=== PATIENT | female | born 1990 | race Caucasian/White ===

== ENCOUNTER 2018-12-12 16:37 | Outpatient (CLI) | payer MEDICAID | END 2018-12-12 18:11 | disposition home or self-care (01) | LOC: LC 16:37 | PROVIDERS: ATTEND Obstetrics & Gynecology | DX: Z34.93 Encounter for supervision of normal pregnancy, unspecified, third trimester (principal) ==

== ENCOUNTER 2018-12-21 16:49 | Outpatient (CLI) | payer MEDICAID ==
[2018-12-21] MEDS ORDERED: BUTALB/ACETAMINOPHEN/CAFFEINE 1 TAB EACH ONE (17:13)
[2018-12-21] MEDS ORDERED: BUTALB/ACETAMINOPHEN/CAFFEINE 1 TAB EACH PO ONE (17:45)
== END 2018-12-21 17:42 | disposition home or self-care (01) ==
LOC: LC 16:49
PROVIDERS: ATTEND Obstetrics & Gynecology
PROC: 4A1HXCZ Monitoring of Products of Conception, Cardiac Rate, External Approach (ICD-10-PCS; principal; 2018-12-21)
DX: Z34.83 Encounter for supervision of other normal pregnancy, third trimester (principal)
CPT/HCPCS: 59025; J3490

== ENCOUNTER → 2018-12-24 | Outpatient (CLI) | payer MEDICAID ==
[2018-12-24 18:04] LABS: ALBUMIN 3.4 g/dL (3.5-5.0); ALKALINE PHOSPHATASE 120 U/L (38-126); ASPARTATE AMINO TRANSFERASE 25 U/L (14-36); BILIRUBIN,DIRECT 0.1 mg/dL (0.0-0.4); BILIRUBIN,TOTAL 0.3 mg/dL (0.2-1.3); TOTAL PROTEIN 5.9 g/dL (6.3-8.2)
== END ==
LOC: OD 16:32
PROVIDERS: ATTEND Obstetrics & Gynecology Gynecology
DX: Z34.83 Encounter for supervision of other normal pregnancy, third trimester (principal)
CPT/HCPCS: 36415; 80076; 82239

== ENCOUNTER 2019-01-07 16:23 | Inpatient (IN) | payer MEDICAID ==
[2019-01-07 16:59] LABS: HEMATOCRIT 36.7 % (36.0-47.0); HEMOGLOBIN 12.5 g/dL (12.0-15.5); MEAN CORPUSCULAR HEMOGLOBIN 31.8 pg (27.0-33.4); MEAN CORPUSCULAR HGB CONC 34.1 g/dL (32.0-36.0); MEAN CORPUSCULAR VOLUME 93 fl (80-97); PLATELET COUNT 200 10^3/uL (150-450); RED BLOOD COUNT 3.93 10^6/uL (3.72-5.28); RED CELL DISTRIBUTION WIDTH 14.9 % (11.5-14.0); WHITE BLOOD COUNT 11.5 10^3/uL (4.0-10.5)
[2019-01-07] MEDS ORDERED: ACETAMINOPHEN 325 MG TABLET PO ONE (17:07)
[2019-01-07] MEDS ORDERED: ACETAMINOPHEN 325 MG TABLET ONE (17:11)
[2019-01-07 17:31] LABS: ALBUMIN 3.4 g/dL (3.5-5.0); ALKALINE PHOSPHATASE 119 U/L (38-126); ANION GAP 9 (5-19); ASPARTATE AMINO TRANSFERASE 37 U/L (14-36); BILIRUBIN,DIRECT 0.2 mg/dL (0.0-0.4); BILIRUBIN,TOTAL 0.3 mg/dL (0.2-1.3); BLOOD UREA NITROGEN 4 mg/dL (7-20); CALCIUM 9.7 mg/dL (8.4-10.2); CARBON DIOXIDE 28 mmol/L (22-30); CHLORIDE 100 mmol/L (98-107); GLUCOSE 91 mg/dL (75-110)
[2019-01-07 17:39] LABS: POTASSIUM 2.7 mmol/L (3.6-5.0)
[2019-01-07 17:39] LABS: APPEARANCE,URINE CLEAR; BILIRUBIN,URINE NEGATIVE (NEGATIVE); COLOR,URINE STRAW; GLUCOSE, URINE NEGATIVE (NEGATIVE); KETONES,URINE NEGATIVE (NEGATIVE); LEUKOCYTE ESTERASE,URINE NEGATIVE (NEGATIVE); NITRITE,URINE NEGATIVE (NEGATIVE); PROTEIN,URINE NEGATIVE (NEGATIVE); URINE SPECIFIC GRAVITY 1.003; UROBILINOGEN,URINE NEGATIVE mg/dL (<2.0)
[2019-01-07 18:03] LABS: URINE AMPHETAMINES SCREEN NEGATIVE; URINE BARBITURATES SCREEN NEGATIVE; URINE BENZODIAZEPINES SCREEN NEGATIVE; URINE COCAINE SCREEN NEGATIVE; URINE MARIJUANA (THC) SCREEN NEGATIVE; URINE METHADONE SCREEN NEGATIVE; URINE PHENCYCLIDINE SCREEN NEGATIVE
[2019-01-07 18:16] LABS: UR PRO/CREAT RATIO RESULT 1.1 mg/mg (0.0-0.2); URINE CREATININE 17.9 mg/dL (16-327); URINE PROTEIN 18.8 mg/dL (<12)
[2019-01-07] MEDS ORDERED: RINGERS SOLUTION,LACTATED 1,000 ML IV PRN (18:53)
[2019-01-07] MEDS ORDERED: RINGERS SOLUTION,LACTATED 1,000 ML IV ONE (18:53)
[2019-01-07] MEDS ORDERED: DINOPROSTONE 10 MG VAGINAL INSERT.SR PV PRN (18:53)
[2019-01-07] MEDS ORDERED: NALBUPHINE HCL INJ 10 MG/1 ML AMPULE INJ ONE (18:57)
[2019-01-07] MEDS ORDERED: ZOLPIDEM TARTRATE 5 MG TABLET ONE (22:05)
[2019-01-07] MEDS ORDERED: NALBUPHINE HCL INJ 10 MG/1 ML AMPULE ONE (22:09)
[2019-01-07] MEDS ORDERED: PROMETHAZINE HCL INJ 25 MG/1 ML VIAL ONE (22:43)
[2019-01-08] MEDS ORDERED: HYDRALAZINE HCL INJ/PF 20 MG/1 ML SDV ONE (08:28)
[2019-01-08] MEDS ORDERED: OXYTOCIN/NORMAL SALINE 20 UNIT/1,000 ML RTUINJ IV PRN ×2 (08:29→18:10)
[2019-01-08] MEDS ORDERED: OXYTOCIN/NORMAL SALINE 20 UNIT/1,000 ML RTUINJ ONE (08:48)
[2019-01-08] MEDS ORDERED: MISOPROSTOL 0.2 MG TABLET ONE (08:48)
[2019-01-08] MEDS ORDERED: LIDOCAINE 1% INJ-PF (10 MG/ML) 30 ML SDV ONE (08:48)
[2019-01-08] MEDS ORDERED: OXYTOCIN 10 UNIT/ML VIAL ONE (08:48)
[2019-01-08] MEDS ORDERED: HYDRALAZINE HCL INJ/PF 20 MG/1 ML SDV IV ONE (09:30)
[2019-01-08] MEDS ORDERED: POTASSIUM CHLORIDE 10 MEQ CAPSULE.ER PO ONE (09:30)
[2019-01-08] MEDS ORDERED: ACETAMINOPHEN 1,000 MG/100 ML RTUPB IV ONE ×2 (09:37→09:39)
[2019-01-08 09:58] LABS: HEMATOCRIT 36.4 % (36.0-47.0); HEMOGLOBIN 12.7 g/dL (12.0-15.5); MEAN CORPUSCULAR HEMOGLOBIN 32.1 pg (27.0-33.4); MEAN CORPUSCULAR HGB CONC 34.9 g/dL (32.0-36.0); MEAN CORPUSCULAR VOLUME 92 fl (80-97); PLATELET COUNT 202 10^3/uL (150-450); RED BLOOD COUNT 3.96 10^6/uL (3.72-5.28); RED CELL DISTRIBUTION WIDTH 14.8 % (11.5-14.0); WHITE BLOOD COUNT 12.2 10^3/uL (4.0-10.5)
[2019-01-08 10:16] LABS: ALBUMIN 3.4 g/dL (3.5-5.0); ALKALINE PHOSPHATASE 122 U/L (38-126); ANION GAP 7 (5-19); ASPARTATE AMINO TRANSFERASE 33 U/L (14-36); BILIRUBIN,DIRECT 0.1 mg/dL (0.0-0.4); BILIRUBIN,TOTAL 0.4 mg/dL (0.2-1.3); BLOOD UREA NITROGEN 4 mg/dL (7-20); CALCIUM 9.2 mg/dL (8.4-10.2); CARBON DIOXIDE 28 mmol/L (22-30); CHLORIDE 103 mmol/L (98-107); GLUCOSE 84 mg/dL (75-110); TOTAL PROTEIN 6.1 g/dL (6.3-8.2); URIC ACID 4.9 mg/dL (2.5-6.2)
[2019-01-08 10:20] LABS: POTASSIUM 2.6 mmol/L (3.6-5.0)
[2019-01-08] MEDS ORDERED: FENTANYL/BUPIVACAINE/NS/PF 300 MCG/150 ML RTUINJ EPI ONE (10:22)
[2019-01-08] MEDS ORDERED: FENTANYL CITRATE INJ/PF 100 MCG/2 ML AMPUL ONE (10:22)
[2019-01-08] MEDS ORDERED: PHENYLEPHRINE HCL INJ/PF 10 MG/1 ML SDV ONE (10:22)
[2019-01-08] MEDS ORDERED: BUPIVACAINE HCL 0.25 % INJ/PF (2.5 MG/1 ML) 30 ML VIAL ONE (10:22)
[2019-01-08] MEDS ORDERED: EPHEDRINE SULFATE INJ 50 MG/1 ML AMPULE ONE (10:22)
[2019-01-08] MEDS ORDERED: LIDOCAINE 2%/EPINEPHRINE INJ 20 ML VIAL ONE (16:02)
[2019-01-08] MEDS ORDERED: IBUPROFEN 800 MG TABLET ONE (17:19)
--- NOTE | 2019-01-08 18:08 | Admission Physical ---
Datetime Report Generated by CPN: 01/08/2019 18:08 CURRENT ADMISSION Chief Complaint: Signs/Symptoms Gestational HTN Indication for Induction: PreEclampsia Admit Impression : Term, Intrauterine ; No Active Labor Admit Plan: Admit to Unit; Initiate Labor Induction Protocol ALLERGIES Medication Allergies: Yes Medication Allergies: divalproex sodium (01/07/2019) Latex: No Latex Allergies Food Allergies: n/a Environmental Allergies: None OBSTETRICAL HISTORY EDC: 01/16/2019 00:00 : 2 Para: 1 Term: 1 : 0 SAB: 0 IAB: 0 Ectopic: 0 Livin Cesareans: 0 VBACs: 0 Multiple Births: 0 Gestational Diabetes: No Rh Sensitization: No Incompetent Cervix: No MAURICE: No Infertility: No ART Treatment: No Uterine Anomaly: No IUGR: No Hx Previous C/S: No Macrosomia: No Hx Loss/Stillborn: No PIH: No Hx : No Placenta Previa/Abruption: No Depression/PP Depression: No PTL/PROM: No Post Hemorrhage: No Current Procedures: NST SEE RECORDS Alcohol: No Marijuana : No Cocaine: No Other Illicit Drugs: No Cigarettes: Current Everyday Smoker. [id number] Cigarette Frequency: > 10 per day Advised to Stop: Yes MEDICAL HISTORY Diabetes: No Blood Transfusion: No Pulmonary Disease (Asthma, TB): No Breast Disease: No Hypertension: Yes Clay Thrower Surgery: No Heart Disease: No Hosp/Surgery: Yes Autoimmune Disorder: No Anesthetic Complications: No Kidney Disease: Yes Abnormal Pap Smear: No Neuro/Epilepsy: No Psychiatric Disorders: Yes Other Medical Diseases: No Hepatitis/Liver Disease: No Significant Family History: No Varicosities/Phlebitis: No Trauma/Violence : No Thyroid Dysfunction: No Medical History Comments: GHTN, PRE-E UTI MOOD DISORDER CHILDBIRTH INFECTIOUS HISTORY Chlamydia: Yes Infectious History Comments: CHLAMYDIA-07/05/2018- NEG MORALES PHYSICAL EXAM General: Normal HEENT: Normal Neurologic: Normal Thyroid: Deferred Heart: Normal Lungs: Normal Breast: Deferred Back: Normal Abdomen: Normal Genitourinary Exam: Normal Extremities: Normal DTRs: Normal Pelvic Type: Adequate Vital Signs: Reviewed VAGINAL EXAM Dilatation: AL Effacement: 90 Station: 0 Contraction Comments: Q2-3mins MEMBRANES Pooling: Positive Membranes: Ruptured Amniotic Fluid Color: Clear FETUS A EGA: 38.6 Monitoring: External US FHR- Baseline: 120 Variability: Moderate 6-25bpm Accelerations: 15X15 Decelerations: None FHR Category: Category I Estimated Weight (gm): 3100 Presentation: Vertex Admit Comment: at 38+6 with dx of preeclampsia admitted for IOL. received one dose of hydralazine this morning for severe range BPs; BPs stable since one dose and CAVAZOS resolved with ofirmev. GBS neg. P: pitocin IOL, anticipate PLANS FOR LABOR AND DELIVERY Labor and Delivery: None Pain Management: Natural Feeding Preference: Formula Benefit of Breast Feed Discussed: Yes Circumcision: N/A INFORMED CONSENT Assignment: Landy Rico MD Signature: with User ID: [email or web address] : with User ID: [email or web address]
[2019-01-08] MEDS ORDERED: GLYCERIN/WITCH HAZEL LEAF 1 EACH MED..WIPE TP PRN (18:10)
[2019-01-08] MEDS ORDERED: MAGNESIUM HYDROXIDE SUSP 30 ML UDCUP PO PRN (18:10)
[2019-01-08] MEDS ORDERED: ZOLPIDEM TARTRATE 5 MG TABLET PO PRN (18:10)
[2019-01-08] MEDS ORDERED: NA PHOS,M-B/NA PHOS,DI-BA (ADULT) 133 ML ENEMA PR PRN (18:10)
[2019-01-08] MEDS ORDERED: DIPHENHYDRAMINE HCL 25 MG CAPSULE PO PRN (18:10)
[2019-01-08] MEDS ORDERED: PROMETHAZINE HCL INJ 25 MG/1 ML VIAL IV PRN (18:10)
[2019-01-08] MEDS ORDERED: PROMETHAZINE HCL 25 MG SUPP.RECT PR PRN (18:10)
[2019-01-08] MEDS ORDERED: PSEUDOEPHEDRINE HCL 30 MG TABLET PO PRN (18:10)
[2019-01-08] MEDS ORDERED: PROMETHAZINE HCL 25 MG TABLET PO PRN (18:10)
[2019-01-08] MEDS ORDERED: BENZOCAINE/MENTHOL AEROSOL SPRAY 56 ML TOP PRN (18:10)
[2019-01-08] MEDS ORDERED: DIPH/PERTUSS(ACELL)/TETANUS VAC/PF 0.5 ML SYR (>=10YO) IM PRN (18:10)
[2019-01-08] MEDS ORDERED: MEASLES,MUMPS&RUBELLA VACC/PF 0.5 ML VIAL SUBCUT PRN (18:10)
[2019-01-08] MEDS ORDERED: ACETAMINOPHEN WITH CODEINE #3 TABLET PO PRN (18:10)
[2019-01-08] MEDS ORDERED: DIBUCAINE 1% OINTMENT 56 GM TP PRN (18:10)
--- NOTE | 2019-01-08 18:17 | Warning Signs in Babies ---
VOD Warning Signs Datetime Report Generated by [facility]: 01/08/2019 18:17 VOD#[id number] -Warning Signs in Babies: Viewed with Parent(s)/Family (01/08/2019 17:45:Laureen Aguilar RN)
--- NOTE | 2019-01-08 20:29 | Delivery Summary ---
Del Sum A-C Datetime Report Generated by CPN: 01/08/2019 20:29 DELIVERY PERSONNEL DELIVERY PERSONNEL: [id number] Delivery Doctor:: Petty Lau CNM Labor and Delivery Nurse:: Laureen Aguilar RNphoto mask processor Nurse:: Etta Martinez RN Student Observers:: Meri TORRES RN Concrete Pipe Plant Supervisor/BEE BREEDER: Monse Garcia, MECHANICAL CAD DRAFTER MATERNAL INFORMATION Delivery Anesthesia: Epidural Medications After Delivery: Pitocin Bolus-Please Comment; Pitocin Drip 20 Units/1000ml NSS Delivery QBL: 200 Maternal Complications: None Provider Comments: PHILLIP VIABLE FEMALE WITH SPONTANEOUS CRY. CORD DOUBLE CLAMPED AND CUT. SPONTANEOUS PLACENTA WITH 3VC. NO LACERATIONS. MOTHER AND STABLE IN L_D #1 LABOR SUMMARY EDC: 01/16/2019 00:00 No. Babies in Womb: 1 Attempted: No Labor Anesthesia: Epidural LABOR INFORMATION Reason for Induction: Pre-Eclampsia Onset of Labor: 01/08/2019 10:24 Complete Dilatation: 01/08/2019 16:25 Oxytocin: Induction Group B Beta Strep: NEGATIVE Antibiotics # of Doses: 0 Steroids Given: None Reason Steroids Not Administered: Not Applicable MEMBRANES Membranes Rupture Method: Artificial Rupture of Membranes: 01/08/2019 10:24 Length of Rupture (hr): 6.43 Amniotic Fluid Color: Clear Amniotic Fluid Amount: Small STAGES OF LABOR Stage 1 hr: 6 Stage 1 min: 1 Stage 2 hr: 0 Stage 2 min: 25 Stage 3 hr: 0 Stage 3 min: 8 Total Time in Labor hr: 6 Total Time in Labor min: 34 VAGINAL DELIVERY Episiotomy: None Laceration #1: None Laceration Extension #1: N/A Sponge Count Correct: N/A Sharps Count Correct: N/A CSECTION DELIVERY Primary Indication: N/A Secondary Indication: N/A CSection Incidence: N/A Labor: N/A Elective: N/A CSection Incision: N/A BABY A INFORMATION Delivery Date/Time: 01/08/2019 16:50 Method of Delivery: Vaginal Born in Route : No : N/A Forceps: N/A Vacuum Extraction: N/A Shoulder Dystocia : No PRESENTATION/POSITION BABY A Presentation: Cephalic Cephalic Presentation: Vertex Vertex Position: Left Occipital Anterior- WITH COMPOUND LT HAND Breech Presentation: N/A PLACENTA INFORMATION BABY A Placenta Delivery Time : 01/08/2019 16:58 Placenta Method of Delivery: Spontaneous Placenta Status: Delivered SCORES BABY A Heart Rate 1 min: >100 bpm Resp Effort 1 min: Good Cry Reflex Irritability 1 min: Cough or Sneeze or Pulls Away Muscle Tone 1 min: Active Motion Color 1 min: Body [place], Extremities Blue Resuscitation Effort 1 min: Tactile Stimulation SCORE 1 MIN: 9 Heart Rate 5 min: >100 bpm Resp Effort 5 min: Good Cry Reflex Irritability 5 min: Cough or Sneeze or Pulls Away Muscle Tone 5 min: Active Motion Color 5 min: Body [place], Extremities Blue Resuscitation Effort 5 min: N/A SCORE 5 MIN: 9 INFANT INFORMATION BABY A Gestational Age at Delivery: 38.6 Gestational Status: Early Term- 37- 38.6 Weeks Outcome : Liveborn Condition : Stable Infant Sex: Female IDENTIFICATION BABY A Verification Date/Time: 01/08/2019 17:23 ID Band Number: [id number] Mother's Name Verified: Yes Infant RN Verifying : Tram Aguilar RN, C. [place] RN WEIGHT/LENGTH BABY A Birthweight (gm): 2978 Weight (lb): 6 Infant Weight (oz): 9 Infant Length (in): 19.50 Length (cm): 49.53 CORD INFORMATION BABY A No. Cord Vessels: 3 Nuchal Cord : N/A Cord Blood Taken: Yes-For Eval (Mom's Blood Type - or O+) Suction: None ASSESSMENT BABY A Infant Complications: None Physical Findings at Delivery: Within Normal Limits Infant Respirations: Appears Normal Skin to Skin: Yes Activities Director Scouting/ALS Called : No Care By: Nhi White RN Transferred To: Remains with Mother BABY B INFORMATION : N/A SIGNATURES Assignment: Landy Rico MD Signature: with User ID: [email or web address] : with User ID: [email or web address] : I was personally available for consultation and serving as supervising physician for the MLP.
[2019-01-08] MEDS: FAMOTIDINE 20 MG TABLET PO SCH (23:29)
[2019-01-09] MEDS: IBUPROFEN 800 MG TABLET PO SCH ×4 (02:37→17:13)
[2019-01-09 08:09] LABS: ABSOLUTE BASOPHILS # (AUTO) 0.2 10^3/uL (0.0-0.2); ABSOLUTE EOSINOPHILS # (AUTO) 0.2 10^3/uL (0.0-0.6); ABSOLUTE LYMPHOCYTES (AUTO) 3.3 10^3/uL (0.5-4.7); ABSOLUTE MONOCYTES (AUTO) 0.9 10^3/uL (0.1-1.4); ABSOLUTE NEUT (AUTO) 12.5 10^3/uL (1.7-8.2); BASOPHILS % (AUTO) 0.9 % (0-2); EOSINOPHILS % (AUTO) 0.9 % (0-6); HEMOGLOBIN 12.3 g/dL (12.0-15.5); LYMPHOCYTES % (AUTO) 19.6 % (13-45); MEAN CORPUSCULAR HEMOGLOBIN 32.5 pg (27.0-33.4); MEAN CORPUSCULAR HGB CONC 35.1 g/dL (32.0-36.0); MEAN CORPUSCULAR VOLUME 93 fl (80-97); MONOCYTES % (AUTO) 5.5 % (3-13); PLATELET COUNT 192 10^3/uL (150-450); RED BLOOD COUNT 3.79 10^6/uL (3.72-5.28); RED CELL DISTRIBUTION WIDTH 14.9 % (11.5-14.0); SEGMENTED NEUTROPHILS % (AUTO) 73.1 % (42-78); TOTAL CELLS COUNTED % (AUTO) 100 %; WHITE BLOOD COUNT 17.1 10^3/uL (4.0-10.5)
[2019-01-09] MEDS: ACETAMINOPHEN WITH CODEINE #3 TABLET PO PRN ×3 (08:24→22:26)
[2019-01-09 08:25] LABS: ALBUMIN 2.9 g/dL (3.5-5.0); ALKALINE PHOSPHATASE 100 U/L (38-126); ANION GAP 7 (5-19); ASPARTATE AMINO TRANSFERASE 33 U/L (14-36); BILIRUBIN,DIRECT 0.2 mg/dL (0.0-0.4); BILIRUBIN,TOTAL 0.4 mg/dL (0.2-1.3); BLOOD UREA NITROGEN 4 mg/dL (7-20); CALCIUM 8.5 mg/dL (8.4-10.2); CARBON DIOXIDE 28 mmol/L (22-30); CHLORIDE 103 mmol/L (98-107); GLUCOSE 73 mg/dL (75-110); TOTAL PROTEIN 5.5 g/dL (6.3-8.2)
[2019-01-09 08:28] LABS: POTASSIUM 2.7 mmol/L (3.6-5.0)
[2019-01-09] MEDS: SENNOSIDES/DOCUSATE 8.6-50 MG 1 EACH TABLET PO SCH (09:52)
[2019-01-09] MEDS: FERROUS SULFATE 325 MG TABLET PO SCH ×2 (09:52→17:13)
[2019-01-09] MEDS: FAMOTIDINE 20 MG TABLET PO SCH ×2 (09:52→22:26)
[2019-01-09] MEDS: PRENATAL VITAMIN W DHA CAPSULE PO SCH (09:52)
[2019-01-09] MEDS: DOCUSATE SODIUM 100 MG CAPSULE PO SCH ×2 (09:53→17:13)
[2019-01-09] MEDS ORDERED: POTASSI CL 20 MEQ/50 ML RIDER 20 MEQ/50 ML RTUPB IV ONE (15:30)
--- NOTE | 2019-01-09 16:10 | PDOC PROGRESS REPORT ---
Subjective-OB Progress Note for:: 01/09/19 Subjective: 28yo G2 now P2 s/p ppd1. Ambulating and voiding without difficulty. Reports pain well controlled with medication. Denies any concerns at this time Physical Exam (OB) Vital Signs: Temp Pulse Resp BP Pulse Ox 98.4 F 85 16 133/92 H 100 01/09/19 07:37 01/09/19 07:37 01/09/19 07:37 01/09/19 07:37 01/09/19 07:37 Intake & Output 01/08/19 01/09/19 01/10/19 06:59 06:59 06:59 Weight 69.1 kg - General General Appearance: Appears well In distress: None - PIH/Pre-Eclampsia DTR's: 2 + Clonus: Negative Headache: Absent Epigastric Pain: No Visual Changes: No - Episiotomy/Laceration Site Condition: N/A - Lochia Lochia Amount: Scant < 10 ml Lochia Color: Rubra/Red - Abdomen Description: Soft, Round Hernia Present: No Fundal Description: Firm, Midline Fundal Height: u/u - u/2 - Respiratory Respiratory Status: No respiratory distress - Neurological Cognition: Normal Orientation: AAOx4 - Psychological Associated symptoms: Normal affect, Normal mood Objective-Diagnostic Laboratory: 01/09/19 07:25 01/09/19 07:25 01/09/19 01/09/19 07:25 07:25 WBC 17.1 H RBC 3.79 Hgb 12.3 Hct 35.0 L MCV 93 MCH 32.5 MCHC 35.1 RDW 14.9 H Plt Count 192 Seg Neutrophils % 73.1 Sodium 137.6 Potassium 2.7 L* Chloride 103 Carbon Dioxide 28 Anion Gap 7 BUN 4 L Creatinine 0.42 L Est GFR ( Amer) > 60 Glucose 73 L Calcium 8.5 Total Bilirubin 0.4 AST 33 Alkaline Phosphatase 100 Total Protein 5.5 L Albumin 2.9 L Assessment and Plan(PN) - Assessment and Plan (1) Pre-eclampsia Qualifiers: Trimester: third trimester Qualified Code(s): O14.93 - Unspecified pre-eclampsia, third trimester Is this a current diagnosis for this admission?: Yes Plan: delivered, mild range bps since delivery, continue to monitor for s/s of pp pre- e. (2) Low serum potassium level Is this a current diagnosis for this admission?: Yes Plan: reviewed with Dr. Shaver, orders received (3) Vaginal delivery Is this a current diagnosis for this admission?: Yes Plan: routine pp care (4) Smoker Is this a current diagnosis for this admission?: Yes Plan: cessation encouraged - Time Spent with Patient Time with patient: Less than 15 minutes Smoking Education Provided: Over 3 minutes Medications reviewed and adjusted accordingly: Yes - Disposition Anticipated Discharge: Home Within: within 24 hours
[2019-01-09] MEDS ORDERED: HYDRALAZINE HCL INJ/PF 20 MG/1 ML SDV IV ONE (20:45)
[2019-01-09] MEDS: NIFEDIPINE 30 MG TAB.ER.24 PO SCH (22:26)
[2019-01-10] MEDS: IBUPROFEN 800 MG TABLET PO SCH ×2 (02:33→10:10)
[2019-01-10 06:40] LABS: ALBUMIN 3.3 g/dL (3.5-5.0); ALKALINE PHOSPHATASE 111 U/L (38-126); ANION GAP 11 (5-19); ASPARTATE AMINO TRANSFERASE 37 U/L (14-36); BILIRUBIN,DIRECT 0.2 mg/dL (0.0-0.4); BILIRUBIN,TOTAL 0.4 mg/dL (0.2-1.3); BLOOD UREA NITROGEN 6 mg/dL (7-20); CALCIUM 9.1 mg/dL (8.4-10.2); CARBON DIOXIDE 28 mmol/L (22-30); CHLORIDE 99 mmol/L (98-107); GLUCOSE 80 mg/dL (75-110); TOTAL PROTEIN 5.9 g/dL (6.3-8.2)
[2019-01-10 06:49] LABS: POTASSIUM 2.7 mmol/L (3.6-5.0)
[2019-01-10] MEDS ORDERED: INFLUENZA QUAD (6MOS+) 2019-20 VAC 0.5 ML SYR IM ONE (08:00)
[2019-01-10] MEDS ORDERED: CYCLOBENZAPRINE HCL 10 MG TABLET PO PRN (09:35)
--- NOTE | 2019-01-10 09:55 | PDOC PROGRESS REPORT ---
Subjective-OB Progress Note for:: 01/10/19 Subjective: pt ready to go home, c/o of pain in left neck, has heat pack on it, worse when she moves, feels like mucscle, bottle feeding, denies headache, blurred vision, or signs of pre-e Physical Exam (OB) Vital Signs: Temp Pulse Resp BP Pulse Ox 98.0 F 93 18 125/82 100 01/10/19 07:30 01/10/19 07:30 01/10/19 04:14 01/10/19 07:30 01/10/19 07:30 Intake & Output 01/09/19 01/10/19 01/11/19 06:59 06:59 06:59 Intake Total 720 Balance 720 - PIH/Pre-Eclampsia DTR's: 1 + Clonus: Negative Headache: Absent Epigastric Pain: No Visual Changes: No - Lochia Lochia Amount: Small 10-25 ml Lochia Color: Rubra/Red - Abdomen Description: Soft, Round Hernia Present: No Fundal Description: Firm, Midline Fundal Height: u/u - u/2 Objective-Diagnostic Laboratory: 01/09/19 07:25 01/10/19 05:51 01/10/19 05:51 Sodium 137.6 Potassium 2.7 L* Chloride 99 Carbon Dioxide 28 Anion Gap 11 BUN 6 L Creatinine 0.42 L Est GFR ( Amer) > 60 Glucose 80 Calcium 9.1 Total Bilirubin 0.4 AST 37 H Alkaline Phosphatase 111 Total Protein 5.9 L Albumin 3.3 L Assessment and Plan(PN) - Assessment and Plan (1) Neck pain on left side Is this a current diagnosis for this admission?: Yes (2) Pre-eclampsia Qualifiers: Trimester: third trimester Qualified Code(s): O14.93 - Unspecified pre- eclampsia, third trimester Is this a current diagnosis for this admission?: Yes (3) Low serum potassium level Is this a current diagnosis for this admission?: Yes (4) Vaginal delivery Is this a current diagnosis for this admission?: Yes (5) Smoker Is this a current diagnosis for this admission?: Yes - Time Spent with Patient Time with patient: Less than 15 minutes Smoking Education Provided: Over 3 minutes Medications reviewed and adjusted accordingly: Yes - Disposition Anticipated Discharge: Home Within: within 24 hours - discussed low K with Dr. Greene, will get hospitalist to see patient, did not increase after K rider, left neck pain, will give flexeril
--- NOTE | 2019-01-10 10:06 | PDOC DISCHARGE SUMMARY ---
Impression - Admit/DC Date/PCP Admission Date/Primary Care Provider: 01/07/19 18:48 BABAR ARCE MD Discharge Date: 01/10/19 - Discharge Diagnosis (1) Neck pain on left side Is this a current diagnosis for this admission?: Yes (2) Pre-eclampsia Is this a current diagnosis for this admission?: Yes (3) Low serum potassium level Is this a current diagnosis for this admission?: Yes (4) Vaginal delivery Is this a current diagnosis for this admission?: Yes (5) Smoker Is this a current diagnosis for this admission?: Yes - Additional Information Resuscitation Status: Full Code Discharge Diet: As Tolerated, Regular Discharge Activity: Activity As Tolerated, No Lifting Over 10 Pounds, No Lifting/Push/Pulling, Pelvic Rest, No tub bath Referrals: BABAR ARCE MD [Primary Care Provider] - 02/04/19 1:30 pm (CALL THE OFFICE FOR ANY QUESTIONS OR CONCERN f/u 1 week ) Prescriptions: Cyclobenzaprine HCl [Flexeril 10 mg Tablet] 10 mg PO Q8HP PRN #7 tablet PRN Reason: Ibuprofen [Motrin 800 mg Tablet] 800 mg PO Q8A #30 tablet Nifedipine [Procardia XL 30 mg Tablet] 30 mg PO Q12 #60 tab.er.24 Home Medications: Pnv No.95/Ferrous Fum/Folic AC [ Caplet] 1 tab PO DAILY 12/12/18 Cyclobenzaprine HCl [Flexeril 10 mg Tablet] 10 mg PO Q8HP PRN #7 tablet 01/10/19 Ibuprofen [Motrin 800 mg Tablet] 800 mg PO Q8A #30 tablet 01/10/19 Nifedipine [Procardia XL 30 mg Tablet] 30 mg PO Q12 #60 tab.er.24 01/10/19 HPI Gestational Age: 38.6 Reason(s) for Admission: Induction of Labor Admission Note: Pre-eclampsia Procedures: NST, Ultrasound Intrapartum Procedure(s): Spontaneous Vaginal Delivery - viable female, low k, apgars 9/9, wt 6-9, compound left arm Hospital Course Hospital Course: routine, low K left neck pain, muscle, bottle feeding, hospitalist to see pt before discharge for low K and anesthesia to see pt for left neck pain that stated after epidural Results Laboratory Results: WBC 17.1 10^3/uL (4.0-10.5) H 01/09/19 07:25 RBC 3.79 10^6/uL (3.72-5.28) 01/09/19 07:25 Hgb 12.3 g/dL (12.0-15.5) 01/09/19 07:25 Hct 35.0 % (36.0-47.0) L 01/09/19 07:25 MCV 93 fl (80-97) 01/09/19 07:25 MCH 32.5 pg (27.0-33.4) 01/09/19 07:25 MCHC 35.1 g/dL (32.0-36.0) 01/09/19 07:25 RDW 14.9 % (11.5-14.0) H 01/09/19 07:25 Plt Count 192 10^3/uL (150-450) 01/09/19 07:25 Lymph % (Auto) 19.6 % (13-45) 01/09/19 07:25 [place] % (Auto) 5.5 % (3-13) 01/09/19 07:25 Eos % (Auto) 0.9 % (0-6) 01/09/19 07:25 Baso % (Auto) 0.9 % (0-2) 01/09/19 07:25 Absolute Neuts (auto) 12.5 10^3/uL (1.7-8.2) H 01/09/19 07:25 Absolute Lymphs (auto) 3.3 10^3/uL (0.5-4.7) 01/09/19 07:25 Absolute Monos (auto) 0.9 10^3/uL (0.1-1.4) 01/09/19 07:25 Absolute Eos (auto) 0.2 10^3/uL (0.0-0.6) 01/09/19 07:25 Absolute Basos (auto) 0.2 10^3/uL (0.0-0.2) 01/09/19 07:25 Seg Neutrophils % 73.1 % (42-78) 01/09/19 07:25 Sodium 137.6 mmol/L (137-145) 01/10/19 05:51 Potassium 2.7 mmol/L (3.6-5.0) L* 01/10/19 05:51 Chloride 99 mmol/L (98-107) 01/10/19 05:51 Carbon Dioxide 28 mmol/L (22-30) 01/10/19 05:51 Anion Gap 11 (5-19) 01/10/19 05:51 BUN 6 mg/dL (7-20) L 01/10/19 05:51 Creatinine 0.42 mg/dL (0.52-1.25) L 01/10/19 05:51 Est GFR ( Amer) > 60 (>60) 01/10/19 05:51 Est GFR (MDRD) Non-Af > 60 (>60) 01/10/19 05:51 Glucose 80 mg/dL (75-110) 01/10/19 05:51 Uric Acid 4.9 mg/dL (2.5-6.2) 01/08/19 09:40 Calcium 9.1 mg/dL (8.4-10.2) 01/10/19 05:51 Total Bilirubin 0.4 mg/dL (0.2-1.3) 01/10/19 05:51 Direct Bilirubin 0.2 mg/dL (0.0-0.4) 01/10/19 05:51 Neonat Total Bilirubin Not Reportable 01/10/19 05:51 Neonat Direct Bilirubin Not Reportable 01/10/19 05:51 Neonat Indirect Bili Not Reportable 01/10/19 05:51 AST 37 U/L (14-36) H 01/10/19 05:51 ALT 22 U/L (<35) 01/10/19 05:51 Alkaline Phosphatase 111 U/L (38-126) 01/10/19 05:51 Lactate Dehydrogenase 177 U/L (120-246) 01/08/19 09:40 Total Protein 5.9 g/dL (6.3-8.2) L 01/10/19 05:51 Albumin 3.3 g/dL (3.5-5.0) L 01/10/19 05:51 Urine Color STRAW 01/07/19 17:00 Urine Appearance CLEAR 01/07/19 17:00 Urine pH 8.0 (5.0-9.0) 01/07/19 17:00 Ur Specific [place] 1.003 01/07/19 17:00 Urine Protein NEGATIVE mg/dL (NEGATIVE) 01/07/19 17:00 Urine Glucose (UA) NEGATIVE mg/dL (NEGATIVE) 01/07/19 17:00 Urine Ketones NEGATIVE mg/dL (NEGATIVE) 01/07/19 17:00 Urine Blood NEGATIVE (NEGATIVE) 01/07/19 17:00 Urine Nitrite NEGATIVE (NEGATIVE) 01/07/19 17:00 Urine Bilirubin NEGATIVE (NEGATIVE) 01/07/19 17:00 Urine Urobilinogen NEGATIVE mg/dL (<2.0) 01/07/19 17:00 Ur Leukocyte Esterase NEGATIVE (NEGATIVE) 01/07/19 17:00 Urine Creatinine 17.9 mg/dL (16-327) 01/07/19 17:00 Protein/Creatinin Ratio 1.1 mg/mg (0.0-0.2) H 01/07/19 17:00 Urine Total Protein 18.8 mg/dL (<12) H 01/07/19 17:00 Urine Ascorbic Acid NEGATIVE (NEGATIVE) 01/07/19 17:00 Urine Opiates Screen NEGATIVE 01/07/19 17:00 Urine Methadone Screen NEGATIVE 01/07/19 17:00 Ur Barbiturates Screen NEGATIVE 01/07/19 17:00 Ur Phencyclidine Scrn NEGATIVE 01/07/19 17:00 Ur Amphetamines Screen NEGATIVE 01/07/19 17:00 U Benzodiazepines Scrn NEGATIVE 01/07/19 17:00 Urine Cocaine Screen NEGATIVE 01/07/19 17:00 U Marijuana (THC) Screen NEGATIVE 01/07/19 17:00 Blood Type O POSITIVE 01/07/19 16:49 Antibody Screen NEGATIVE 01/07/19 16:49 Plan Health Concerns: reviewed S&S to report, RTC 1 week, flexeril for left neck pain with movement Plan of Treatment: see above Goals: left neck pain resolved and normal K Time Spent: Less than 30 Minutes
[2019-01-10] MEDS: FAMOTIDINE 20 MG TABLET PO SCH (10:10)
[2019-01-10] MEDS: DOCUSATE SODIUM 100 MG CAPSULE PO SCH (10:10)
[2019-01-10] MEDS: SENNOSIDES/DOCUSATE 8.6-50 MG 1 EACH TABLET PO SCH (10:10)
[2019-01-10] MEDS: FERROUS SULFATE 325 MG TABLET PO SCH (10:10)
[2019-01-10] MEDS: NIFEDIPINE 30 MG TAB.ER.24 PO SCH (10:12)
[2019-01-10] MEDS: PRENATAL VITAMIN W DHA CAPSULE PO SCH (10:13)
--- NOTE | 2019-01-10 10:24 | PDOC CONSULTATION ---
Consultation Consult Date: 01/10/19 Attending physician:: BABAR ARCE Provider Consulted: PRITESH SAEED Consult reason:: Hypokalemia History of Present Illness Admission Date/PCP: 01/07/19 18:48 BABAR ARCE MD Patient complains of: Pain in left neck History of Present Illness: CHARISSE ZAMUDIO is a 28 year old female Past Medical History Cardiac Medical History: Reports: Hypertension Pulmonary Medical History: Reports: None EENT Medical History: Reports: None Endocrine Medical History: Reports: None Renal/ Medical History: Reports: None Malignancy Medical History: Reports: None GI Medical History: Reports: None Musculoskeltal Medical History: Reports: None Psychiatric Medical History: Reports: Depression Traumatic Medical History: Reports: None Hematology: Reports: None Infectious Medical History: Reports: None Past Surgical History Past Surgical History: Reports: None Social History Information Source: Patient Lives with: Family Smoking Status: Current Every Day Smoker Frequency of Alcohol Use: None Hx Recreational Drug Use: No Drugs: None Hx Prescription Drug Abuse: No - Advance Directive Resuscitation Status: Full Code Family History Family History: Reviewed & Not Pertinent Parental Family History Reviewed: Yes Children Family History Reviewed: Yes Sibling(s) Family History Reviewed.: Yes Medication/Allergy Home Medications: Pnv No.95/Ferrous Fum/Folic AC [ Caplet] 1 tab PO DAILY 12/12/18 Cyclobenzaprine HCl [Flexeril 10 mg Tablet] 10 mg PO Q8HP PRN #7 tablet 01/10/19 Ibuprofen [Motrin 800 mg Tablet] 800 mg PO Q8A #30 tablet 01/10/19 Nifedipine [Procardia XL 30 mg Tablet] 30 mg PO Q12 #60 tab.er.24 01/10/19 Allergies/Adverse Reactions: divalproex sodium [From Depakote] Allergy (Verified 01/07/19 17:08) Review of Systems Constitutional: ABSENT: chills, fever(s), headache(s), weight gain, weight loss Eyes: ABSENT: visual disturbances Ears: ABSENT: hearing changes Cardiovascular: ABSENT: chest pain, dyspnea on exertion, edema, orthropnea, palpitations Respiratory: ABSENT: cough, hemoptysis Gastrointestinal: ABSENT: abdominal pain, constipation, diarrhea, hematemesis, hematochezia, nausea, vomiting Genitourinary: ABSENT: dysuria, hematuria Musculoskeletal: PRESENT: other - Neck pain. ABSENT: joint swelling Integumentary: ABSENT: rash, wounds Neurological: ABSENT: abnormal gait, abnormal speech, confusion, dizziness, focal weakness, syncope Psychiatric: ABSENT: anxiety, depression, homidical ideation, suicidal ideation Endocrine: ABSENT: cold intolerance, heat intolerance, polydipsia, polyuria Hematologic/Lymphatic: ABSENT: easy bleeding, easy bruising Physical Exam Vital Signs: Temp Pulse Resp BP Pulse Ox 98.0 F 93 18 125/82 100 01/10/19 07:30 01/10/19 07:30 01/10/19 04:14 01/10/19 07:30 01/10/19 07:30 Intake & Output 01/09/19 01/10/19 01/11/19 06:59 06:59 06:59 Intake Total 720 Balance 720 General appearance: PRESENT: no acute distress, well-developed, well-nourished Head exam: PRESENT: atraumatic, normocephalic Eye exam: PRESENT: conjunctiva pink, EOMI, PERRLA. ABSENT: scleral icterus Ear exam: PRESENT: normal external ear exam Mouth exam: PRESENT: moist, tongue midline Neck exam: ABSENT: carotid bruit, JVD, lymphadenopathy, thyromegaly Respiratory exam: PRESENT: clear to auscultation [place]. ABSENT: rales, rhonchi, wheezes Cardiovascular exam: PRESENT: RRR. ABSENT: diastolic murmur, rubs, systolic murmur Pulses: PRESENT: normal dorsalis pedis pul Vascular exam: PRESENT: normal capillary refill GI/Abdominal exam: PRESENT: normal bowel sounds, soft. ABSENT: distended, guarding, mass, organolmegaly, rebound, tenderness Rectal exam: PRESENT: deferred Extremities exam: PRESENT: full ROM. ABSENT: calf tenderness, clubbing, pedal edema Neurological exam: PRESENT: alert, awake, oriented to person, oriented to place, oriented to time, oriented to situation, CN II-XII grossly intact. ABSENT: motor sensory deficit Psychiatric exam: PRESENT: appropriate affect, normal mood. ABSENT: homicidal ideation, suicidal ideation Skin exam: PRESENT: dry, intact, warm. ABSENT: cyanosis, rash Results Laboratory Results: 01/09/19 07:25 01/10/19 05:51 01/10/19 05:51 Sodium 137.6 Potassium 2.7 L* Chloride 99 Carbon Dioxide 28 Anion Gap 11 BUN 6 L Creatinine 0.42 L Est GFR ( Amer) > 60 Glucose 80 Calcium 9.1 Total Bilirubin 0.4 AST 37 H Alkaline Phosphatase 111 Total Protein 5.9 L Albumin 3.3 L Assessment and Plan - Plan Summary Summary: 01/10/20195099-[id number] chloride 40 mEq p.o. every 4 hours x3 doses repeat BMP in the a.m. Neck pain-patient to be seen by anesthesia as she had received a epidural for childbirth. - Time Time Spent with patient: 25-34 minutes
[2019-01-10 13:55] VITALS: BP 137/85
[2019-01-10] MEDS ORDERED: POTASSIUM CHLORIDE 10 MEQ CAPSULE.ER PO SCH (14:00)
== END 2019-01-10 15:45 | disposition home or self-care (01) | DRG 807 ==
LOC: LC 16:23 → LR 18:48 → 2S 01-08 21:23
PROVIDERS: ADMIT Obstetrics & Gynecology Gynecology; ATTEND Obstetrics & Gynecology Gynecology
PROC: 10E0XZZ Delivery of Products of Conception, External Approach (ICD-10-PCS; principal; 2019-01-08)
PROC: 10907ZC Drainage of Amniotic Fluid, Therapeutic from Products of Conception, Via Natural or Artificial Opening (ICD-10-PCS; 2019-01-08)
PROC: 3E02340 Introduction of Influenza Vaccine into Muscle, Percutaneous Approach (ICD-10-PCS; 2019-01-10)
PROC: 3E0234Z Introduction of Serum, Toxoid and Vaccine into Muscle, Percutaneous Approach (ICD-10-PCS; 2019-01-10)
DX: O14.94 Unspecified pre-eclampsia, complicating childbirth (principal); Z37.0 Single live birth; O99.334 Smoking (tobacco) complicating childbirth; F17.210 Nicotine dependence, cigarettes, uncomplicated; O32.6XX0 Maternal care for compound presentation, not applicable or unspecified; Z3A.38 38 weeks gestation of pregnancy; Z23 Encounter for immunization; E87.6 Hypokalemia; O99.284 Endocrine, nutritional and metabolic diseases complicating childbirth; M54.2 Cervicalgia; O99.89 Other specified diseases and conditions complicating pregnancy, childbirth and the puerperium; O99.344 Other mental disorders complicating childbirth; F32.9 Major depressive disorder, single episode, unspecified
CPT/HCPCS: 36415; 59025; 80053; 80307; 81005; 82570; 83615; 84156; 84550; 85025; 85027; 86850; 86900; 86901; 90686; 90707; 94760; J0131; J0360; J2300; J2370; J2550; J2590; J3010; J3480; J3490